=== PATIENT | female | born 1995 | race Caucasian/White ===

== ENCOUNTER 2018-01-12 23:09 | Emergency (ER) | payer OTHER ==
[2018-01-12 23:21] VITALS: BP 121/71; PULSE 81; TEMP 98.2; BMI 22.6
--- NOTE | 2018-01-13 00:16 | PDOC ---
History of Present Illness - General History Source: Patient Exam Limitations: No Limitations - History of Present Illness Initial Comments: 01/13/18 00:52 The patient is a 22 year old female presenting with her friend, with no significant past medical history, who presents to the emergency department with cough, shortness of breath and headache for the past month. She notes that her cough is productive of a phlegm. She reports that she went to [facility] where she was diagnosed with an upper respiratory infection and gave her pills for the cough and throat pain but she notes only minimal improvement. She denies any recent travel or sick contacts. The patient denies chest pain, dizziness, fever, chills, nausea, vomit, diarrhea and constipation. Denies dysuria, frequency, urgency and hematuria. Allergies: None Past surgical history: None reported Social history: No alcohol, tobacco or drug use reported <Lupillo Canseco - Last Filed: 01/13/18 00:52> - General History Source: Patient Exam Limitations: No Limitations <Mona Dunlap - Last Filed: 01/14/18 17:55> - General Chief Complaint: Cold Symptoms Stated Complaint: COUGHING Time Seen by Provider: 01/13/18 00:15 Past History <Lupillo Canseco - Last Filed: 01/13/18 00:52> - Past Medical History COPD: No - Suicide/Smoking/Psychosocial Hx Smoking History: Never smoked Have you smoked in the past 12 months: No Information on smoking cessation initiated: No Hx Alcohol Use: Yes Drug/Substance Use Hx: No <Mona Dunlap - Last Filed: 01/14/18 17:55> - Past Medical History Allergies/Adverse Reactions: Allergies Allergy/AdvReac Type Severity Reaction Status Date / Time No Known Allergies Allergy Verified 01/12/18 23:21 Home Medications: Ambulatory Orders Azithromycin [Zithromax 250mg Tablets -] 250 mg PO UTDICT #6 tab 01/13/18 Benzonatate [Tessalon Pearls -] 200 mg PO TID #30 cap 01/13/18 Fluticasone Propionate [Flonase Allergy Relief] 9.9 ml NS BID #1 bottle Guaifenesin [Mucinex -] 600 mg PO BID #14 tablet.er 01/13/18 Review of Systems - Review of Systems Able to Perform ROS?: Yes Comments:: 01/13/18 00:53 GENERAL/CONSTITUTIONAL: No fever or chills. No weakness. HEAD, EYES, EARS, NOSE AND THROAT: No change in vision. No ear pain or discharge. No sore throat. CARDIOVASCULAR: (+) Shortness of breath. No chest pain RESPIRATORY: (+) Cough. No wheezing, or hemoptysis. GASTROINTESTINAL: No nausea, vomiting, diarrhea or constipation. GENITOURINARY: No dysuria, frequency, or change in urination. MUSCULOSKELETAL: No joint or muscle swelling or pain. No neck or back pain. SKIN: No rash NEUROLOGIC: (+) Headache. No vertigo, loss of consciousness, or change in strength/sensation. ENDOCRINE: No increased thirst. No abnormal weight change HEMATOLOGIC/LYMPHATIC: No anemia, easy bleeding, or history of blood clots. ALLERGIC/IMMUNOLOGIC: No hives or skin allergy. <Lupillo Canseco - Last Filed: 01/13/18 00:52> *Physical Exam - Vital Signs Last Vital Signs Temp Pulse Resp BP Pulse Ox 98.2 F 81 18 121/71 99 01/12/18 23:19 01/12/18 23:19 01/12/18 23:19 01/12/18 23:19 01/12/18 23:19 - Physical Exam Comments: 01/13/18 00:53 GENERAL: Awake, alert, and fully oriented, in no acute distress HEAD: No signs of trauma, normocephalic, atraumatic EYES: PERRLA, EOMI, sclera anicteric, conjunctiva clear ENT: Auricles normal inspection, hearing grossly normal, nares patent, oropharynx clear without exudates. Moist mucosa NECK: Normal ROM, supple, no lymphadenopathy, JVD, or masses LUNGS: No distress, speaks full sentences, clear to auscultation bilaterally HEART: Regular rate and rhythm, normal S1 and S2, no murmurs, rubs or gallops, peripheral pulses normal and equal bilaterally. ABDOMEN: Soft, nontender, normoactive bowel sounds. No guarding, no rebound. No masses EXTREMITIES : Normal inspection, Normal range of motion, no edema. No clubbing or cyanosis. NEUROLOGICAL: Cranial nerves II through XII grossly intact. Normal speech, normal gait, no focal sensorimotor deficits SKIN: Warm, Dry, normal turgor, no rashes or lesions noted <Lupillo Canseco - Last Filed: 01/13/18 00:52> - Vital Signs Last Vital Signs Temp Pulse Resp BP Pulse Ox 98.2 F 81 18 121/71 99 01/12/18 23:19 01/12/18 23:19 01/12/18 23:19 01/12/18 23:19 01/12/18 23:19 <Mona Dunlap - Last Filed: 01/14/18 17:55> Medical Decision Making - Medical Decision Making 01/13/18 01:37 Alvina is a 22 yo F who presents to the ER with a complaint of cough Pt states her cough has been present for 1 month No fevers or chills No chest pain with cough Pt states that when she coughs, she gets a headache No recent travel No ill contacts Pt was seen at [facility], given prescription for Tessalon Pearles Pt states she ran out of them but continue to cough She has not had a CXR She denies h/o Asthma No N/V/D/ DD: Bronchitis, Atypical Pneumonia, Reactive airways Will do CXR Will discharge to home on Azithromycin, Mucinex, Flonase 01/13/18 02:11 CXR: No effusion, no consolidation, ? increased markings Pt has chronic cough Vacc[place], doubt Pertussis CXR is not suggestive of consolidation Will discharge to home on Azithromycin, Tesselon, Mucinex Will ask pt to follow up in the Clinic Return to the ER for any other concerns or complaints clinical impression: cough, initial presentation <Mona Dunlap - Last Filed: 01/14/18 17:55> *DC/Admit/Observation/Transfer - Attestations Scribe Attestion: 01/13/18 00:54 Documentation prepared by Lupillo Canseco, acting as certified medical aide for Mona Dunlap MD <Lupillo Canseco - Last Filed: 01/13/18 00:52> - Discharge Dispostion Admit: No <Mona Dunlap - Last Filed: 01/14/18 17:55> Diagnosis at time of Disposition: Cough - Discharge Dispostion Disposition: HOME Condition at time of disposition: Stable - Prescriptions Prescriptions: Azithromycin [Zithromax 250mg Tablets -] 250 mg PO UTDICT #6 tab Benzonatate [Tessalon Pearls -] 200 mg PO TID #30 cap Fluticasone Propionate [Flonase Allergy Relief] 9.9 ml NS BID #1 bottle Guaifenesin [Mucinex -] 600 mg PO BID #14 tablet.er - Referrals Referrals: Mookie Rendon MD [Staff Physician] - - Patient Instructions Printed Discharge Instructions: DI for Cough -- Adult, Guaifenesin Additional Instructions: Alvina Thanks for coming in to the ER today Please take medications as prescribed I would recommend that you follow up with a primary care physician Please monitor yourself for fevers and chills Please return to the ER for any other concerns or complaints
== END 2018-01-13 03:04 | disposition home or self-care (01) ==
LOC: JER 23:09
DX: R05 Cough (principal)
CPT/HCPCS: 71046-TC-FY; 84703; 99281-25

== ENCOUNTER 2018-09-17 21:23 | Emergency (ER) | payer OTHER ==
[2018-09-17 21:28] VITALS: BP 134/93; PULSE 100; TEMP 98.6; BMI 22.8
--- NOTE | 2018-09-17 21:30 | PDOC ---
History of Present Illness - General Chief Complaint: Cold Symptoms Stated Complaint: COLD SYMPTOMS Time Seen by Provider: 09/17/18 21:29 History Source: Patient - History of Present Illness Timing/Duration: reports: yesterday Associated Symptoms: reports: fever/chills, muscle aches. denies: chest pain/ soreness, cough, earache, facial pain, nasal congestion, nasal drainage, shortness of breath, sore throat, wheezing Past History - Past Medical History Allergies/Adverse Reactions: Allergies Allergy/AdvReac Type Severity Reaction Status Date / Time No Known Allergies Allergy Verified 09/17/18 21:28 Home Medications: Ambulatory Orders Azithromycin [Zithromax 250mg Tablets -] 250 mg PO UTDICT #6 tab 01/13/18 Benzonatate [Tessalon Pearls -] 200 mg PO TID #30 cap 01/13/18 Fluticasone Propionate [Flonase Allergy Relief] 9.9 ml NS BID #1 bottle Guaifenesin [Mucinex -] 600 mg PO BID #14 tablet.er 01/13/18 COPD: No - Suicide/Smoking/Psychosocial Hx Smoking History: Never smoked Have you smoked in the past 12 months: No Hx Alcohol Use: Yes Drug/Substance Use Hx: No Review of Systems - Review of Systems Constitutional: No: Chills, Fever HEENTM: No: Throat Pain Respiratory: No: Cough ABD/GI: Yes: Nausea, Vomiting. No: Diarrhea : No: Dysuria *Physical Exam - Vital Signs Last Vital Signs Temp Pulse Resp BP Pulse Ox 98.6 F 100 H 18 134/93 99 09/17/18 21:25 09/17/18 21:25 09/17/18 21:25 09/17/18 21:25 09/17/18 21:25 - Physical Exam General Appearance: Yes: Appropriately Dressed. No: Apparent Distress HEENT: positive: Normal ENT Inspection, Normal Voice. negative: Scleral Icterus (R), Scleral Icterus (L) Neck: positive: Supple. negative: Lymphadenopathy (R), Lymphadenopathy (L) Respiratory/Chest: positive: Lungs Clear, Normal Breath Sounds. negative: Respiratory Distress Cardiovascular: positive: Regular Rate, S1, S2 Gastrointestinal/Abdominal: positive: Soft. negative: Tender Integumentary: positive: Dry, Warm Neurologic: positive: Fully Oriented, Alert, Normal Mood/Affect Medical Decision Making - Medical Decision Making 09/17/18 21:29 22 yo female, no past medical history, here with headache with body aches and possible congestion that started last night. Also reports one episode of vomiting last night with vague upper abdominal pain today, but states abdominal pain has since resolved. No diarrhea, fever or chills. Has been able to tolerate poh today. No recent travel or sick contacts. Patient well-appearing and stable with unremarkable exam. Possibly viral syndrome. Will dc with supportive treatment as needed *DC/Admit/Observation/Transfer Diagnosis at time of Disposition: Viral syndrome - Discharge Dispostion Disposition: HOME Condition at time of disposition: Good - Referrals - Patient Instructions Printed Discharge Instructions: DI for Viral Syndrome Additional Instructions: Rest, drink plenty of fluids and take over the counter medications as needed If symptoms worsen, return to the ED - Post Discharge Activity
== END 2018-09-17 22:10 | disposition home or self-care (01) ==
LOC: JERFT 21:23
DX: B34.9 Viral infection, unspecified (principal)
CPT/HCPCS: 99281-25

== ENCOUNTER 2023-08-14 20:41 | Emergency (ER) | payer OTHER ==
[2023-08-14 20:48] VITALS: BP 130/83; PULSE 110; RESP 19; TEMP 99.2; BMI 22.6
[2023-08-14] MEDS ORDERED: KETOROLAC TROMETHAMINE 15 MG/ML VIAL IM ONE (22:01)
[2023-08-14] MEDS ORDERED: KETOROLAC TROMETHAMINE 15 MG/ML VIAL ONE (22:08)
== END 2023-08-14 22:43 | disposition home or self-care (01) ==
LOC: JERFT 20:41 → JER 20:41
PROC: 3E0233Z Introduction of Anti-inflammatory into Muscle, Percutaneous Approach (ICD-10-PCS; principal; 2023-08-14)
DX: H92.03 Otalgia, bilateral (principal); H92.13 Otorrhea, bilateral; R20.2 Paresthesia of skin; R68.83 Chills (without fever); H60.93 Unspecified otitis externa, bilateral; R59.0 Localized enlarged lymph nodes
CPT/HCPCS: 99284-25